=== PATIENT | male | born 1960 | race Caucasian/White ===

== ENCOUNTER 2017-07-14 07:02 | Emergency (ER) | payer BC, OTHER ==
--- OUTSIDE RECORDS SUMMARY | 2017-07-14 07:20 | XMS REPORT ---
:1960 External Reference #:[id number] Author Organization [facility] Address [address] [place] [address] Phone [phone] Care Team Providers Name Role Phone Jimmie Chneey MD Care Team Information Passport Support Manager Unavailable Jimmie Cheney MD Primary Care Physician Unavailable Payers Type Date Identification Numbers Payment Provider Subscriber Commercial Policy Number: [id number] JohnTc Garciaker PayID: [id number] [address] [address] [place] [address] Medigap Part B Effective: Policy Number: BC/BS Of YUDY Giles 2011 [id number] Malik PayID: [id number] [address] [address] [place] [address] Problems Date Description Provider Status Onset: 01/23/2017 Ingrowing nail Jimmie Cheney M.D. Active Onset: 11/28/2015 Actinic keratosis Jimmie Cheney M.D. Active Onset: 11/28/2015 Benign prostatic hypertrophy without Jimmie Cheney M.D. Active outflow obstruction Onset: 02/25/2013 Type 2 diabetes mellitus Jimmie Cheney M.D. Active Onset: 02/25/2013 Acute lymphadenitis Jimmie Cheney M.D. Active Onset: 11/03/2012 Hyperlipidemia Jimmie Cheney M.D. Active Onset: 11/03/2012 Benign localized hyperplasia of Jimmie Cheney M.D. Active prostate Onset: 11/03/2012 Tobacco user Jimmie Cheney M.D. Active Onset: 11/03/2012 Benign essential hypertension Jimmie Cheney M.D. Active Onset: 11/03/2012 Psoriasis Jimmie Cheney M.D. Active Family History Date Family Member(s) Problem(s) Comments Father Non Insulin Dependent Diabetes Father Parkinsons onset at 63 Onset: (age 73 Father Pneumonia , aspiration, Years) parkinsons Mother Gout Mother Psoriasis Mother Arthritis Mother Lung Cancer Mother Ovarian Cancer First Brother Unknown : (age 80 Paternal Grandmother due to Cancer Years) Onset: (age 75 Paternal Uncles Cancer lymphoma Years) Social History Type Date Description Comments Marital Status Patient is Cigarette Use Former Cigarette Smoker Smoking Patient is a former smoker Allergies, Adverse Reactions, Alerts Date Description Reaction Status Severity Comments 11/03/2012 NKDA active Medications Medication Date Status Form Strength Qnty SIG Indications Ordering Provider Glipizide ER 03/13 Active Tablets 2.5mg 90tab 1 by mouth Jimmie F. ER 24HR s every day Zoran Cheney Nizoral 07/11 Active Shampoo 2% 120ml use as Jimmie F. directed Shravan, three times M.D. per week Fluocinolone 07/11 Active Oil 0.01% 118.2 apply 1 Jimmie F. Acetonide 80ml application Shallish, topically to M.D. affected area 3 times per day for eczema Freestyle Lite 11/16 Active Strip 50uni use as Jimmie F. Test ts directed Shravan, 1x/day M.D. dx:250.00- freestyle lite Topicort 03/22 Active Ointment 0.25% 60uni apply three Jimmie F. /2013 ts times a day Shallish, to the M.D. affected area as needed Atorvastatin 03/22 Active Tablets 10mg 30tab Take 1 Jimmie F. Calcium s tablet by Shallish, mouth every M.D. day Freestyle Test 11/08 Active Strips 1Boxe use as Jimmie F. Strips s directed Shravan, 1x/day M.D. dx:250.00- freestyle lite Metformin HCL ER 10/10 Active Tablets 500mg 180ta 3 by mouth Jimmie F. /2013 ER 24HR bs every day Shallish, dose change M.D. Glipizide ER 12/15 Hx Tablets 5mg 90tab 1 by mouth Jimmie F. /2015 ER 24HR s every day Shravan, - M.D. 07/11 Cyclobenzaprine 09/10 Hx Tablets 5mg 15tab 07/01-1 tablet M54.5 Rachel HCL s every night [place], - at bedtime M.D. 11/27 as needed Test Strips Free 11/05 Hx 100un test bid or Vanessa Rosangela. Style Lit its as directed Caroline, - dx:250.00 M.D. 11/08 Prednisone 03/24 Hx Tablets 20mg 10tab 1 by mouth 842.09 Luigi s twice a day Logan, - for 5 days M.D. 09/23 Doxycycline 02/25 Hx Capsules 100mg 30cap take one Jimmie F. Hyclate s capsule by Shravan, - mouth twice M.D. 03/08 a Chantix 01/08 Hx Tablets 1mg 60tab Take One Jimmie F. s Tablet By Shravan, - Mouth Twice M.D. 09/23 A No Active 11/03 Hx Unknown Medications /2012 - 11/03 Chantix Starting 11/03 Hx Tablets 0.5mg X 1tabs refill with Jimmie F. Month 11 & 1 mg po bid Shravan, - 1 mg X 42 M.D. 09/23 Topicort 11/03 Hx Cream 0.25% 1Tub rub in bid Jimmie F. prn Shravan, - M.D. 09/23 Naproxen Sodium 11/29 Hx Tablets 550mg 60tab 1 tab bid 724.2 s prn Alber Teenp-C 11/02 Flexeril 11/29 Hx Tablets 10mg 20tab 1 po tid prn 724.2 Gege s muscle spasm Alber Teenp-C 11/02 Physical Therapy 11/29 Hx treatment 724.2 Gege and Nay - evaluation Grayson-C 12/08 of lower back pain Chantix 01/13 Hx Misc 1unit 1 starter Jimmie F. s pack as Shravan, - directed, Zoran 11/02 then refill /2012 maintenance packs x 3 months Wellbutrin XL 01/13 Hx 150mg 90uni 1 po qd Jimmie F. Alber Barraza M.D. 11/02 Lipitor 01/13 Hx 20mg 45uni 1/2 po qd Jimmie F. ts Alber Cheney M.D. 11/02 Chantix 04/20 Hx Tablets 1mg 60tab 1 po bid Jimmie F. /2008 s Alber Cheney M.D. 01/13 Chantix 02/24 Hx Misc 1unit 1 starter Jimmie F. /2007 s pack as Shravan - Zoran schultz 04/20 then refill maintenance packs x 3 months Zithromax 06/20 Hx Tablets 250mg 1tabs 2 PO qd 461.9 Jimmie F. /2006 Today , Then Shravan, - 1 PO qd M.DPatt 02/10 Times Mucinex 06/20 Hx 40uni 1 PO bid prn Jimmie F. zaki Cheney - Zoran 02/10 Out Of Work Until 06/20 Hx out of work Jimmie F. through mon Shravan, - 06/22/07, Zoran 02/10 on 06/23/07 Zithromax 07/05 Hx Tablets 250mg 6tabs 2 tabs day 1 Gab TPatt /2005 Alber Page M.D. 06/20 1 tab qd /2006 days 2 thru 5 Work Excuse 07/05 Hx unable to Gab TPatt /2005 work 07/05/05. Camilo - Zoran 06/20 Betamethasone 05/27 Hx Cream 0.1% 60uni apply to Jimmie F. Valerate /2004 ts affected Shravan, - area bid prn Coty.DPatt 06/20 Triamcinolone 05/27 Hx Cream 0.1% 1tub apply to Jimmie F. Acetonide /2004 involved Shravan, - skin daily M.DPatt 06/20 Motrin 05/06 Hx Tablets 600mg 40tab 1 po tid prn Jimmie FPatt /2004 s with food Shravan, - Zoran 06/20 Mobic 10/17 Hx Tablets 7.5mg 30tab 1 PO qd Jimmie F. Alber Colon M.D. 05/27 Lipitor 12/12 Hx 20mg 45uni 1/2 po qd Jimmie F. Alber Barraza M.D. 02/10 Singulair 11/28 Hx 30 10mg 90uni 1 po qd Jimmie F. Alber Barraza M.D. 06/20 Nasacort Aq 11/28 Hx 1unit 2 sprays q Jimmie F. s nostril qd Alber Cheney.DPatt 05/27 Wellbutrin XL 11/28 Hx 150mg 90uni 1 po qd Jimmie F. Alber Barraza M.D. 01/13 Wellbutrin SR 03/10 Hx 150mg 60uni 1 po bid Jimmie F. Alber Barraza M.D. 11/28 Clarinex 12/08 Hx 5mg 30uni 1 qd prn Jimmie F. Alber Barraza M.D. 05/27 Zyban 04/07 Hx 150mg 60uni 1 PO qd X 3 Jmimie F. ts Matilda, Then Shravan, - Increase To M.D. 07/06 Nicotrol NS 01/18 Hx 1unit as Dir Jimmie F. Alber Colon.Gonzales 11/28 Cortisone 12/07 Hx 0unit Jimmie F. /1998 Alber Colon M.D. 12/07 Clarinex 12/07 Hx 10mg 30uni 1 qd prn Jimmie F. Alber Barraza.Gonzales 12/08 Loratadine 00/ Hx Tablets 10mg 30tab 1 po qdm prn Jimmie F. / Alber Colon M.D. 11/29 Immunizations CPT Code Status Date Vaccine Lot # [id number] Given 04/10/2015 Td(Adult),Unspecified [id number] Given 03/23/2015 Influenza Vac, Quadriv[place], [place] [id number] Given 10/18/2008 Tdap Tetanus, W Pertussis [id number] Vital Signs Date Vital Result Comment 06/19/2017 BP Systolic 160 mmHg BP Diastolic 80 mmHg Heart Rate 72 /min Body Temperature 98.7 F Respiratory Rate 16 /min Height 72 inches 6'0" Weight 225.00 lb BMI (Body Mass Index) 30.5 kg/m2 01/23/2017 BP Systolic 124 mmHg BP Diastolic 64 mmHg Heart Rate 72 /min Body Temperature 98.8 F Respiratory Rate 16 /min Height 72 inches 6'0" Weight 221.00 lb BMI (Body Mass Index) 30.0 kg/m2 07/11/2016 BP Systolic 127 mmHg BP Diastolic 70 mmHg Heart Rate 74 /min Body Temperature 98.8 F Respiratory Rate 16 /min Height 72 inches 6'0" Weight 229.00 lb BMI (Body Mass Index) 31.1 kg/m2 11/28/2015 BP Systolic 148 mmHg BP Diastolic 72 mmHg Heart Rate 68 /min Body Temperature 97.7 F Height 72 inches 6'0" Weight 231.00 lb BMI (Body Mass Index) 31.3 kg/m2 09/11/2015 BP Systolic 142 mmHg BP Diastolic 62 mmHg Heart Rate 72 /min Body Temperature 97.9 F Respiratory Rate 16 /min Height 72 inches 6'0" Weight 230.00 lb BMI (Body Mass Index) 31.2 kg/m2 08/09/2014 BP Systolic 142 mmHg BP Diastolic 86 mmHg Heart Rate 72 /min Body Temperature 97.6 F Respiratory Rate 16 /min Height 72 inches 6'0" Weight 227.50 lb BMI (Body Mass Index) 30.9 kg/m2 03/22/2014 BP Systolic 146 mmHg BP Diastolic 80 mmHg Heart Rate 60 /min Body Temperature 98.4 F Respiratory Rate 16 /min Height 72 inches 6'0" Weight 228.12 lb BMI (Body Mass Index) 30.9 kg/m2 Right Visual Acuity Distance 20/100 Left Visual Acuity Distance 20/100 09/23/2013 BP Systolic 144 mmHg BP Diastolic 82 mmHg Heart Rate 68 /min Body Temperature 97.6 F Respiratory Rate 16 /min Height 72 inches 6'0" Weight 234.00 lb BMI (Body Mass Index) 31.7 kg/m2 03/24/2013 BP Systolic 124 mmHg BP Diastolic 74 mmHg Heart Rate 56 /min Body Temperature 97.8 F Respiratory Rate 14 /min Height 72 inches 6'0" Weight 224.00 lb BMI (Body Mass Index) 30.4 kg/m2 03/10/2013 BP Systolic 122 mmHg BP Diastolic 78 mmHg Heart Rate 72 /min Body Temperature 98.2 F Respiratory Rate 14 /min Height 72 inches 6'0" Weight 224.00 lb BMI (Body Mass Index) 30.4 kg/m2 02/25/2013 BP Systolic 140 mmHg BP Diastolic 76 mmHg Heart Rate 76 /min Body Temperature 98.2 F Respiratory Rate 16 /min Height 72 inches 6'0" Weight 226.00 lb BMI (Body Mass Index) 30.6 kg/m2 11/03/2012 BP Systolic 114 mmHg BP Diastolic 80 mmHg Heart Rate 78 /min Body Temperature 98.2 F Height 72 inches 6'0" Weight 228.38 lb BMI (Body Mass Index) 31.0 kg/m2 11/29/2010 BP Systolic 120 mmHg BP Diastolic 80 mmHg Heart Rate 68 /min Body Temperature 98.0 F Height 72 inches 6'0" Weight 229.00 lb BMI (Body Mass Index) 31.1 kg/m2 01/13/2010 BP Systolic 120 mmHg BP Diastolic 64 mmHg Heart Rate 56 /min Body Temperature 98.4 F Height 72 inches 6'0" Weight 231.00 lb BMI (Body Mass Index) 31.3 kg/m2 04/20/2009 BP Systolic 122 mmHg BP Diastolic 72 mmHg Heart Rate 68 /min Weight 233.00 lb 02/13/2009 BP Systolic 124 mmHg BP Diastolic 88 mmHg Heart Rate 66 /min Body Temperature 98.2 F Height 72 inches 6'0" Weight 234.00 lb BMI (Body Mass Index) 31.7 kg/m2 10/18/2008 BP Systolic 140 mmHg BP Diastolic 90 mmHg Body Temperature 98.6 F Respiratory Rate 20 /min Height 72 inches 6'0" Weight 232.00 lb BMI (Body Mass Index) 31.5 kg/m2 02/25/2008 BP Systolic 130 mmHg BP Diastolic 70 mmHg Heart Rate 76 /min Height 73 inches 6'1" Weight 231.00 lb BMI (Body Mass Index) 30.5 kg/m2 02/11/2008 BP Systolic 130 mmHg BP Diastolic 80 mmHg Heart Rate 72 /min Body Temperature 98.3 F Height 73 inches 6'1" Weight 231.00 lb BMI (Body Mass Index) 30.5 kg/m2 06/20/2007 BP Systolic 120 mmHg BP Diastolic 68 mmHg Heart Rate 72 /min Body Temperature 98.6 F Respiratory Rate 18 /min Height 73 inches 6'1" Weight 236.00 lb BMI (Body Mass Index) 31.1 kg/m2 07/05/2005 BP Systolic 134 mmHg BP Diastolic 80 mmHg Heart Rate 66 /min Body Temperature 98.5 F Height 73 inches 6'1" Weight 234.00 lb BMI (Body Mass Index) 30.9 kg/m2 11/29/2003 BP Systolic 126 mmHg BP Diastolic 82 mmHg Heart Rate 78 /min Height 73 inches 6'1" Weight 215.00 lb BMI (Body Mass Index) 28.4 kg/m2 03/10/2003 BP Systolic 140 mmHg BP Diastolic 78 mmHg Heart Rate 76 /min Body Temperature 96.5 F Height 73 inches 6'1" Weight 232.00 lb BMI (Body Mass Index) 30.6 kg/m2 04/07/2001 BP Systolic 128 mmHg BP Diastolic 76 mmHg Height 73 inches 6'1" Weight 226.00 lb BMI (Body Mass Index) 29.8 kg/m2 12/07/1998 BP Systolic 112 mmHg LG Cuff BP Diastolic 80 mmHg LG Cuff Height 73 inches 6'1" Weight 224.50 lb Results Test Date Test Result H/L Range Note Comprehensive Metabolic Prof 01/23/2017 Sodium 141 mEq/L 134-149 Potassium 4.0 mEq/L 3.6-5.5 Chloride 99 mEq/L 94-112 Carbon Dioxide 27 mEq/L 21-32 Glucose 200 mg/dL High 70-105 BUN 19 mg/dL 6-26 Creatinine 0.9 mg/dL 0.6-1.4 BUN/Creat Ratio 21.1 CALC 8.0-36.0 Calcium 8.9 mg/dL 8.6-10.2 Total Protein 6.7 g/dL 6.4-8.3 Albumin 4.6 g/dL 3.8-5.5 Globulin 2.1 g/dL 2.0-4.8 A/G Ratio 2.2 CALC 0.6-2.3 Alk. Phosphatase 48 U/L 22-95 Alt (SGPT) 31 U/L 7-35 Ast (Sgot) 21 U/L 5-34 Total Bilirubin 0.6 mg/dL 0.2-1.3 GFR Non- >60 ml/min/1.73m^ >=60 GFR >60 ml/min/1.73m^ >=60 Lipid Profile 01/23/2017 Cholesterol 173 mg/dL 120-200 Triglycerides 155 mg/dL 30-200 HDL Cholesterol 53 mg/dL 30-70 LDL (Calculated) 89 CALC 0-129 VLDL Cholesterol 31 mg/dL 0-50 HDL Risk Factor 3.3 CALC 0.0-4.4 Complete Blood Count 01/23/2017 WBC 5.4 x10^3/UL 3.6-9.6 RBC 5.41 x10^6/UL 3.90-5.70 HGB 16.2 g/dL 12.1-17.2 HCT 47 % 36-50 MCV 86.0 fL 82.2-97.4 MCH 30.0 pg 27.6-33.3 MCHC 34.7 g/dL 33.0-35.5 RDW 12.7 % 11.6-13.7 PLT 196 x10^3/UL 150-400 MPV 7.1 fL Low 7.4-10.4 Gran # 3.6 x10^3/UL 1.5-7.2 Lymph# 1.5 x10^3/UL 0.7-4.9 [place]# 0.3 x10^3/UL 0.1-0.9 Gran % 65.0 % 42.2-75.2 Lymph % 28.7 % 20.5-51.1 [place]% 6.3 % 1.7-9.3 Laboratory test finding 01/23/2017 PSA 2.1 ng/mL 0.0-4.0 TSH 1.20 mIU/L 0.50-6.00 CK 183 U/L High 38-174 Laboratory test finding 01/23/2017 Hemoglobin A1c (Fma) 8.1 % High 4.1- 5.7 Microalb, Random (Fma/CMC/CTX) 18.9 mg/L 0.5-37 Ua - Non Micro ([facility]ma) 01/23/2017 Appearance clear Color yellow Glucose, Urine (Fma/CMC/CTX) 500mg/dl High known diabetic Bilirubin neg Ketones neg SP Grav 1.020 Blood neg PH 5.5 Protein neg Urobil 0.2 Nitrite neg Leukocytes (Fma/CMC/Centrex) neg Comprehensive Metabolic Prof 07/11/2016 Sodium 141 mEq/L 134-149 Potassium 4.6 mEq/L 3.6-5.5 Chloride 102 mEq/L 94-112 Carbon Dioxide 26 mEq/L 21-32 Glucose 150 mg/dL High 70-105 1 BUN 18 mg/dL 6-26 Creatinine 0.9 mg/dL 0.6-1.4 BUN/Creat Ratio 20.0 CALC 8.0-36.0 Calcium 9.9 mg/dL 8.6-10.2 Total Protein 7.0 g/dL 6.4-8.3 Albumin 4.9 g/dL 3.8-5.5 Globulin 2.1 g/dL 2.0-4.8 A/G Ratio 2.3 CALC 0.6-2.3 Alk. Phosphatase 49 U/L 22-95 Alt (SGPT) 42 U/L High 7-35 2 Ast (Sgot) 27 U/L 5-34 Total Bilirubin 0.8 mg/dL 0.2-1.3 GFR Non- >60 ml/min/1.73m^ >=60 GFR >60 ml/min/1.73m^ >=60 Lipid Profile 07/11/2016 Cholesterol 163 mg/dL 120-200 Triglycerides 72 mg/dL 30-200 HDL Cholesterol 59 mg/dL 30-70 LDL (Calculated) 90 CALC 0-129 VLDL Cholesterol 14 mg/dL 0-50 HDL Risk Factor 2.8 CALC 0.0-4.4 Complete Blood Count 07/11/2016 WBC 5.0 x10^3/UL 3.6-9.6 RBC 5.57 x10^6/UL 3.90-5.70 HGB 16.3 g/dL 12.1-17.2 HCT 48 % 36-50 MCV 86.0 fL 82.2-97.4 MCH 29.3 pg 27.6-33.3 MCHC 33.9 g/dL 33.0-35.5 RDW 13.3 % 11.6-13.7 PLT 173 x10^3/UL 150-400 MPV 6.4 fL Low 7.4-10.4 Gran # 3.1 x10^3/UL 1.5-7.2 Lymph# 1.6 x10^3/UL 0.7-4.9 [place]# 0.3 x10^3/UL 0.1-0.9 Gran % 61.2 % 42.2-75.2 Lymph % 32.7 % 20.5-51.1 [place]% 6.1 % 1.7-9.3 Laboratory test finding 07/11/2016 PSA 2.4 ng/mL 0.0-4.0 TSH 1.17 mIU/L 0.50-6.00 CK 177 U/L High 38-174 Laboratory test finding 07/11/2016 Hemoglobin A1c (Fma) 7.3 % High 4.1- 5.7 Microalb, Random (Fma/CMC/CTX) 21.7 mg/L 0.5-37 Ua - Non Micro (Fma) 07/11/2016 Appearance clear Color yellow Glucose, Urine (Fma/CMC/CTX) neg Bilirubin neg Ketones neg SP Grav >1.030 Blood neg PH 5.5 Protein neg Urobil 0.2 Nitrite neg Leukocytes (Fma/CMC/Centrex) neg Rapid Influenza A & B 05/22/2016 Influenza A Molecular NEGATIVE Negative 3 Molecular Influenza B Molecular NEGATIVE Negative Laboratory test finding 05/22/2016 Rapid Strep Molecular Negative Negative 4 Comprehensive Metabolic Prof 11/28/2015 Sodium 139 mEq/L 134-149 Potassium 4.0 mEq/L 3.6-5.5 Chloride 100 mEq/L 94-112 Carbon Dioxide 28 mEq/L 21-32 Glucose 220 mg/dL High 70-105 5 BUN 16 mg/dL 6-26 Creatinine 0.8 mg/dL 0.6-1.4 BUN/Creat Ratio 20.0 CALC 8.0-36.0 Calcium 10.2 mg/dL 8.6-10.2 Total Protein 7.4 g/dL 6.4-8.3 Albumin 4.9 g/dL 3.8-5.5 Globulin 2.5 g/dL 2.0-4.8 A/G Ratio 2.0 CALC 0.6-2.3 Alk. Phosphatase 48 U/L 22-95 Alt (SGPT) 54 U/L High 7-35 6 Ast (Sgot) 31 U/L 5-34 Total Bilirubin 0.6 mg/dL 0.2-1.3 GFR Non- >60 ml/min/1.73m^ >=60 GFR >60 ml/min/1.73m^ >=60 Lipid Profile 11/28/2015 Cholesterol 181 mg/dL 120-200 Triglycerides 128 mg/dL 30-200 HDL Cholesterol 57 mg/dL 30-70 LDL (Calculated) 98 CALC 0-129 VLDL Cholesterol 26 mg/dL 0-50 HDL Risk Factor 3.2 CALC 0.0-4.4 Complete Blood Count 11/28/2015 WBC 6.0 x10^3/UL 3.6-9.6 RBC 5.79 x10^6/UL High 3.90-5.70 HGB 16.9 g/dL 12.1-17.2 HCT 50 % 36-50 MCV 86.0 fL 82.2-97.4 MCH 29.2 pg 27.6-33.3 MCHC 34.0 g/dL 33.0-35.5 RDW 12.3 % 11.6-13.7 PLT 193 x10^3/UL 150-400 MPV 7.2 fL Low 7.4-10.4 Gran # 4.0 x10^3/UL 1.5-7.2 Lymph# 1.7 x10^3/UL 0.7-4.9 [place]# 0.3 x10^3/UL 0.1-0.9 Gran % 64.5 % 42.2-75.2 Lymph % 29.8 % 20.5-51.1 [place]% 5.7 % 1.7-9.3 Laboratory test finding 11/28/2015 PSA 2.0 ng/mL 0.0-4.0 Laboratory test finding 11/28/2015 Hemoglobin A1c (Fma) 8.6 % High 4.1- 5.7 Microalb, Random (Fma/CMC/CTX) 13.2 mg/L 0.5-37 Ua - Non Micro (Fma) 11/28/2015 Appearance yellow Color clear Glucose, Urine (Fma/CMC/CTX) >=1000mg/dl Bilirubin neg Ketones neg SP Grav 1.020 Blood neg PH 6.0 Protein neg Urobil 0.2 Nitrite neg Leukocytes (Fma/CMC/Centrex) neg Comp Metabolic-[facility] 08/20/2014 Sodium 138 mmol/L 133-145 Potassium 4.1 mmol/L 3.5-5.0 Chloride 106 mmol/L 101-111 Co2 Carbon Dioxide 26 mmol/L 22-32 Anion Gap 6 mmol/L 2-11 Glucose 157 mg/dL High 70-100 Blood Urea Nitrogen 18 mg/dL 6-24 Creatinine 1.05 mg/dL 0.67-1.17 BUN/Creatinine Ratio 17.1 8-20 Calcium 9.7 mg/dL 8.6-10.3 Total Protein 6.5 g/dL 6.4-8.9 Albumin 4.6 g/dL 3.2-5.2 Globulin 1.9 g/dL Low 2-4 Albumin/Globulin Ratio 2.4 1-3 Total Bilirubin 0.70 mg/dL 0.2-1.0 Alkaline Phosphatase 39 U/L 34-104 Alt 37 U/L 7-52 Ast 28 U/L 13-39 Egfr Non- 73.6 >60 Egfr 94.7 >60 7 Lipid Panel-[facility] 08/20/2014 Triglycerides 60 mg/dL 8 Cholesterol 157 mg/dL 9 HDL Cholesterol 48.0 mg/dL 10 LDL Cholesterol 97 mg/dL 11 Laboratory test 08/20/2014 Hemoglobin A1c 8.2 % High Less than 6.0 12 finding CBC Electronic-[facility] 08/20/2014 White Blood Count 5.8 10^3/uL 4.8-10.8 [facility] Red Blood Count 5.44 10^6/uL High 4.0-5.4 Hemoglobin 16.0 g/dL 14.0-18.0 Hematocrit 47 % 42-52 Mean Corpuscular Volume 86 fL 80-94 Mean Corpuscular Hemoglobin 30 pg 27-31 Mean Corpuscular HGB Conc 34 g/dL 31-36 Red Cell Distribution Width 13 % 10.5-15 Platelet Count 167 10^3/uL 150-450 Mean Platelet Volume 8 um3 7.4-10.4 Abs Neutrophils 3.1 10^3/uL 1.5-7.7 Abs Lymphocytes 2.0 10^3/uL 1.0-4.8 Abs Monocytes 0.6 10^3/uL 0-0.8 Abs Eosinophils 0.2 10^3/uL 0-0.6 Abs Basophils 0 10^3/uL 0-0.2 Abs Nucleated RBC 0.02 10^3/uL Granulocyte % 53.5 % 38-83 Lymphocyte % 33.7 % 25-47 Monocyte % 9.5 % High 1-9 Eosinophil % 2.7 % 0-6 Basophil % 0.6 % 0-2 Nucleated Red Blood Cells % 0.3 Laboratory test finding 08/20/2014 TSH (Thyroid Stimulating 1.82 IU/mL 0.34-5.60 Horm) Creatine Kinase 309 U/L High 10-223 PSA Screening 2.058 ng/mL 0-4.000 13 Rubeola Measles Igg AB 08/20/2014 Rubeola (Measles) IgG Antibody Positive 14 [facility] IgG Antibody Index >8.0 15 Ict Hemoccult (a) 03/30/2014 Ict Hemoccult (1) 03/24/14(A) NEG Ict Hemoccult-(2) 03/24/14(B) NEG Ict-Hemoccult (3) 03/25/14 NEG Laboratory test finding 03/22/2014 Hemoglobin A1c ([place] 7.0 % High 4.1-5.7 Microalb, Random ([place] 17.3 mg /L mg/L 0.5-37 Ua - Non Micro ([facility]) 03/22/2014 Appearance clear Color yellow Glucose, Urine (a/CMC/CTX) neg Bilirubin neg Ketones neg SP Grav 1.025 Blood neg PH 6.0 Protein neg Urobil 0.2 Nitrite neg Leukocytes ([facility] [place] neg CBC Electronic ([facility]) 03/22/2014 WBC 6.4 3.6-9.6 RBC 5.25 3.90-5.70 Hemoglobin (a/CMC/CTX) 15.6 g/dL 12.1 - 17.2 Hematocrit (a/CMC/CTX) 44.9 % 36.1 - 50.3 Platelets 151 10^3/ul 150-400 Lymph% 28.7 % 17.0-48.0 Mixed% 3.9 Neutrophils % 67.4 Mean Corpuscular Vol 85 82.2-97.4 Mean Corpuscular Hemoglobin 29.8 27.6-33.3 Mean Corpuscular Hemo Concen 34.9 32.0-36.0 RDW 12.3 11.6-13.7 Mean Platelet Volume 6.5 5.5-11.0 Comprehensive Metabolic Prof 03/22/2014 Sodium 144 mEq/L 134-149 Potassium 3.9 mEq/L 3.6-5.5 Chloride 107 mEq/L 94-112 Carbon Dioxide 23 mEq/L 21-32 Glucose 146 mg/dL High 70-105 BUN 18 mg/dL 6-26 Creatinine 0.9 mg/dL 0.6-1.4 BUN/Creat Ratio 20.0 CALC 8.0-36.0 Calcium 9.8 mg/dL 8.6-10.2 Total Protein 7.2 g/dL 6.3-8.1 Albumin 4.6 g/dL 3.8-5.5 Globulin 2.6 g/dL 2.0-4.8 A/G Ratio 1.8 CALC 0.6-2.3 Alk. Phosphatase 46 U/L 22-95 Alt (SGPT) 45 U/L High 7-35 Ast (Sgot) 32 U/L 5-34 Total Bilirubin 0.3 mg/dL 0.2-1.3 Lipid Profile 03/22/2014 Cholesterol 239 mg/dL High 120-200 Triglycerides 107 mg/dL 30-200 HDL Cholesterol 62 mg/dL 30-70 LDL (Calculated) 156 CALC High 0-129 VLDL Cholesterol 21 mg/dL 0-50 HDL Risk Factor 3.9 CALC 0.0-4.4 Laboratory test finding 03/22/2014 TSH 1.25 mIU/L 0.50-6.00 PSA 3.0 ng/mL 0.0-4.0 Basic Metabolic Profile 09/23/2013 Sodium 136 mEq/L 134-149 Potassium 3.6 mEq/L 3.6-5.5 Chloride 96 mEq/L 94-112 Carbon Dioxide 25 mEq/L 21-32 Glucose 235 mg/dL High 70-105 16 BUN 20 mg/dL 6-26 Creatinine 1.0 mg/dL 0.6-1.4 BUN/Creat Ratio 20.0 CALC 8.0-36.0 Calcium 10.2 mg/dL 8.6-10.2 Lipid Profile 09/23/2013 Cholesterol 251 mg/dL High 120-200 Triglycerides 151 mg/dL 30-200 HDL Cholesterol 52 mg/dL 30-70 LDL (Calculated) 169 CALC High 0-129 VLDL Cholesterol 30 mg/dL 0-50 HDL Risk Factor 4.8 CALC High 0.0-4.4 Laboratory test finding 09/23/2013 PSA 1.7 ng/mL 0.0-4.0 Complete Blood Count 09/23/2013 WBC 6.1 x10^3/UL 3.6-9.6 RBC 5.64 x10^6/UL 3.90-5.70 HGB 16.1 g/dL 12.1-17.2 HCT 49 % 36-50 MCV 87.0 fL 82.2-97.4 MCH 28.6 pg 27.6-33.3 MCHC 32.9 g/dL Low 33.0-35.5 RDW 11.2 % Low 11.6-13.7 PLT 169 x10^3/UL 150-400 MPV 6.7 fL Low 7.4-10.4 Gran # 4.2 x10^3/UL 1.5-7.2 Lymph# 1.6 x10^3/UL 0.7-4.9 [place]# 0.3 x10^3/UL 0.1-0.9 Gran % 66.4 % 42.2-75.2 Lymph % 27.8 % 20.5-51.1 [place]% 5.8 % 1.7-9.3 Laboratory test 09/23/2013 Hemoglobin A1c 10.5 % High 4.1-5.7 finding (Fma/CMC,CX) Surgical Pathology 01/05/2013 S RUN DATE: 01/07/ <SEE NOTE> Ict Hemoccult (Fma) 12/21/2012 Ict Hemoccult (1) neg Ict Hemoccult-(2) neg Ict-Hemoccult (3) neg Comprehensive Metabolic Prof 11/10/2012 Albumin 4.7 g/dL 3.8-5.5 Alk. Phos. 59 U/L 22-95 Alt (SGPT) 42 U/L High 10-40 18 Ast (Sgot) 26 U/L 5-34 BUN 18 mg/dL 6-26 Calcium 9.9 mg/dL 8.6-10.2 Chloride 99 mEq/L 94-112 Creatinine 1.0 mg/dL 0.6-1.4 Carbon Dioxide 26 mEq/L 21-32 Glucose 192 mg/dL High 70-105 19 Sodium 138 mEq/L 134-149 Total Bilirubin 0.7 mg/dL 0.2-1.3 Total Protein 6.9 g/dL 6.3-8.1 Potassium 4.1 mEq/L 3.6-5.5 Globulin 2.2 g/dL 2.0-4.8 A/G Ratio 2.1 Calc 0.6-2.3 BUN/Creat Ratio 17.7 Calc 8.0-36.0 Laboratory test finding 11/10/2012 Free T4 0.99 ng/dL 0.75-1.54 TSH 1.47 mIU/L 0.50-6.00 PSA 2.00 ng/mL 0.00-4.00 CBC Electronic ([facility]) 11/10/2012 WBC 5.6 3.6-9.6 RBC 5.71 High 3.90-5.70 Hemoglobin (Fma/CMC/CTX) 16.3 g/dL 12.1 - 17.2 Hematocrit (Fma/CMC/CTX) 49.9 % 36.1 - 50.3 Platelets 168 10^3/ul 150-400 Lymph% 27.6 20.5-51.1 Mixed% 4.3 Neutrophils % 68.1 Mean Corpuscular Vol 87 82.2-97.4 Mean Corpuscular Hemoglobin 28.6 27.6-33.3 Mean Corpuscular Hemo Concen 32.7 32.0-36.0 RDW 11.1 Low 11.6-13.7 Mean Platelet Volume 6.3 Low 6.5-11.0 Ua - Micro (a) 11/03/2012 Appearance CLEAR Color YELLOW Glucose, Urine (Fma/CMC/CTX) - Bilirubin - Ketones - SP Grav >=1.030 Blood - PH 5.5 Protein - Urobil 0.2 Nitrite - Leukocytes (Fma/CMC/[facility]) - Hyaline - /Lpf Granular - /Lpf WBC (Fma,[facility]) 0-1 RBC - Mucus (Fma/CBC/[facility]) - /Lpf Epith - /Lpf Bacteria rare /Hpf Amorphous (Fma/CMC/[facility]) - /Lpf Crystals, Fluid (Fma/CMC/CTX) - Z#Comments - Laboratory test finding 04/06/2012 Hepatitis C Antibody Nonreactive Nonreactive Laboratory test finding 02/22/2012 Hepatitis B Surface Nonreactive Nonreactive 20 Ag Hepatitis B Surface AB 02/22/2012 Hepatitis B Surface Reactive Nonreactive 20 AB Hbsab Index 3.59 20, 21 Laboratory test 02/22/2012 Hepatitis C Nonreactive Nonreactive 20 finding Antibody Vad 02/22/2012 Vad Final Nonreactive Nonreactive 20, 22 Laboratory test 02/22/2012 Alt (SGPT) 43 U/L 17-63 20 finding Laboratory test 10/18/2008 PSA 1.80 ng/mL 0.00-4.00 23 finding Lipid Profile 10/18/2008 Cholesterol 232 mg/dL High 120-200 23 HDL 45 mg/dL 30-70 23 Triglycerides 122 mg/dL 30-200 23 HDL Risk Factor 5.2 CALC 4.2-7.0 23 LDL (Calculated) 163 CALC High 0-129 23 VLDL (Calculated) 24 mg/dL 0-50 23 Comprehensive Metabolic Prof 10/18/2008 Albumin 4.4 g/dL 3.8-5.5 23 Alk. Phos. 42 U/L 22-95 23 Alt (SGPT) 47 U/L High 10-40 23, 24 Ast (Sgot) 28 U/L 5-34 23 BUN 14 mg/dL 6-26 23 Calcium 9.4 mg/dL 8.6-10.2 23 Chloride 100 mEq/L 94-112 23 Creatinine 1.1 mg/dL 0.6-1.4 23 Carbon Dioxide 26 mEq/L 21-32 23 Glucose 119 mg/dL High 70-105 23 Sodium 139 mEq/L 134-149 23 Total Bilirubin 0.6 mg/dL 0.2-1.3 23 Total Protein 6.6 g/dL 6.3-8.1 23 Potassium 3.7 mEq/L 3.6-5.5 23 Globulin 2.3 g/dL 2.0-4.8 23 A/G Ratio 1.9 Calc 0.6-2.2 23 BUN/Creat Ratio 13.2 Calc 8.0-36.0 23 Laboratory test finding 10/18/2008 TSH 2.16 mIU/L 0.50-6.00 23 Complete Blood Count 10/18/2008 WBC 6.3 x10^3/uL 3.6-9.6 23 Gran# 4.4 x10^3/uL 1.5-7.2 23 Gran% 69.7 % 42.2-75.2 23 HCT 46 % 36-50 23 HGB 15.9 g/dL 12.1-17.2 23 Lymph# 1.6 x10^3/uL 0.7-4.9 23 Lymph% 26.0 % 20.5-51.1 23 MCH 29.0 pg 27.6-33.3 23 MCV 84.3 fL 82.2-97.4 23 MCHC 34.4 g/dL 33.0-35.5 23 Mo# 0.3 x10^3/uL 0.1-0.9 23 Mo% 4.3 % 1.7-9.3 23 MPV 6.9 fL Low 7.4-10.4 23 PLT 174 x10^3/uL 150-400 23 RBC 5.48 x10^6/uL 3.90-5.70 23 RDW 12.9 % 11.6-13.7 23 Laboratory test finding 10/18/2008 Hep B Surface Antigen NEGATIVE Negative 25 Hep C Abs 10/18/2008 Hep C Antibody NEGATIVE Negative 25 Ua - Non Micro (a New) 05/27/2005 Appearance CLEAR Color LT LORENA Glucose 250 MG/DL Bilirubin NEG Ketones TRACE SP Grav >=1.030 Blood NEG PH 5.0 Protein NEG Urobil 0.2 Nitrite NEG Leukocytes NEG Laboratory test finding 04/15/2005 [facility]AST See Image Report Lipid Profile ([facility]) 11/30/2003 Cholesterol 237 mg/dL High 120-200 Triglyceride 59 mg/dL 30-200 HDL-Chol 41 30-85 LDL, Calculated [place] 185 CALC High 0-129 VLDL 12 0-50 HDL Risk Factor ([facility]) 5.8 CALC 4.2-7.0 CBC Electronic [place] 03/14/2003 WBC 6.7 CUMM 4.8-10.8 RBC 5.59 CUMM 4.6-6.2 Hemoglobin (a[place] 16.4 g/dL 14-18 Hematocrit (a/[facility] 48 % 42-52 Mean Corpuscular Vol 87 UM3 80-94 Mean Corpuscular Hemaglobin 29 pg 27-31 Mean Corpuscular Hemo Concen 34 g/dL 32-36 RDW 13 10.5-15 Platelets 293 CUMM 150-450 Mean Platelet Volume 6.3 Low 7.4-10.4 Granulocytes 66.3 % 38-83 Lymphocytes 22.4 % 20-45 Monocytes 8.2 % 1-9 Eosinophil 2.6 0-6 Basophil% 0.5 0-2 Abs Lymphs 1.5 1.0-4.8 Abs Mononuclear 0.5 0-0.8 Abs Grans 4.5 1.5-7.7 Abs Eosinophils 0.2 0-0.6 Abs Basophils 0.0 0-0.2 Lipid Profile [place] 03/14/2003 Triglyceride 162 mg/dL 40-200 Cholesterol (a/[facility]) 232 mg/dL High <200 HDL-Chol 46 40-60 Chol./HDL Ratio ([facility]/CTX) 5.04 AVG High 1-4.97 LDL, Calculated ([facility] 154 High <100 Basic Metabolic [place] 03/14/2003 Sodium 140 mmol/L 135-145 Potassium 4.1 mmol/L 3.5-5.0 Chloride 101 mmol/L 101-111 Co2 32.0 mmol/L 22-32 Anion Gap 7.0 mmol/L 2-11 Glucose, Serum (a/[facility]/CTX) 104 mg/dL 70-105 BUN (a/[facility]rex) 12 mg/dL 6-24 Creatinine (a/[facility]/CTX) 1.2 mg/dL 0.5-1.4 BUN/Creatinin Ratio 10.0 8-20 Calcium (a/[facility]) 10.1 mg/dL 8.7-10.2 Laboratory test 01/02/2003 Comments HEP BS ANT & Titer; Hep A Ant finding AB Laboratory test 04/08/2001 C React Protein <0.3 mg/dL <0.5 finding Ua - Micro [place] [place] 12/30/1999 Color YELLOW Appearance CLEAR SP Grav 1.025 1.010-1.030 Esterase NEGATIVE Negative Nitrite NEGATIVE Negative Urobil NEGATIVE Negative Protein NEGATIVE Negative PH 5.0 5-9 Blood 3+ High Negative Ketones NEGATIVE Negative Bilirubin, Micro NEGATIVE Negative Glucose NEGATIVE mg/dL 70-105 WBC 0-2 CUMM RBC 20-25 CUMM CBC Electronic ([facility] 12/30/1999 WBC 7.6 CUMM 4.8-10.8 RBC 5.77 CUMM 4.6-6.2 Hemoglobin 17.1 g/dL 14-18 Hematocrit 51 % 42-52 Mean Corpuscular Vol 89 um3 80-94 Mean Corpuscular Hemaglobin 30 pg 27-31 Mean Corpuscular Hemo Concen 33 g/dL 32-36 RDW 12 % 10.5-15 Platelets 201 CUMM 150-450 Mean Platelet Volume 7.2 um3 Low 7.4-10.4 Granulocytes 61.5 % 38-83 Lymphocytes 25.5 % 20-45 Monocytes 9.4 % High 1-9 Eosinophil 3.2 % 0-6 Basophil% 0.4 % 0-2 Abs Lymphs 1.9 1.0-4.8 Abs Mononuclear 0.7 0-0.8 Abs Grans 4.8 1.5-7.7 Abs Eosinophils 0.2 0-0.6 Abs Basophils 0 0-0.2 Basic Metabolic [place] 12/30/1999 Sodium 140 mmol/L 135-145 Potassium 3.4 mmol/L Low 3.5-5.0 Chloride 102 mmol/L 95-108 Co2 22.2 mmol/L 21-33 Glucose 142 mg/dL High 70-105 BUN 16 mg/dL 6-22 Creatinine 0.8 mg/dL 0.5-1.4 BUN/Creatinin Ratio 20.0 8-20 Calcium 9.9 mg/dL 8.7-10.2 Laboratory test finding 02/02/1999 Thyroxine, Total (T4) 5.69 g/dL 3.0- 11.0 CBC With Diff ([facility]) 12/30/1998 WBC 6.2 /Hpf 3.6 - 9.6 Lymphocytes 30.9 % 20.5 - 51.1 Monocytes 7.2 % 1.7 - 9.3 Granulocytes 61.9 % 42.2 - 75.2 Lymphocytes 1.9 10^3/uL 0.7 - 4.9 Monocytes 0.4 10^3/uL 0.1 - 0.9 Granulocytes 3.8 10^3/uL 1.5 - 7.2 RBC 5.30 /Hpf 3.90 - 5.70 Hemoglobin 15.4 g/dL 12.1 - 17.2 Hematocrit 46.8 % 36.1 - 50.3 Mean Corpuscular Vol 88.4 fl 82.2 - 97.4 Mean Corpuscular Hemaglobin 29.1 pg 27.6 - 33.3 Mean Corpuscular Hemo Concen 32.9 g/dL Low 33.0 - 34.8 RDW 12.9 % 11.6 - 13.7 Platelets 201 10^3/ul Low 202 - 386 Mean Platelet Volume 6.6 fl Low 7.4 - 10.4 Laboratory test finding 12/13/1998 H. Pylori Igg NONE DETECTED None Detected 1 consistent w/ previous results 2 consistent w/ previous results 3 Rail Engineer: [id number] JOSE BRIDGES 4 Rail Engineer: [id number] PJ RICHARDSON 5 NON-FASTING 6 consistent w/ previous results 7 Because ethnic data is not always readily available, this report includes an eGFR for both -Americans and non- Americans. The National Kidney Disease Education Program (NKDEP) does not endorse the use of the MDRD equation for patients that are not between the ages of 18 and 70, are , have extremes of body size, muscle mass, or nutritional status, or are non- or non-. According to the National Kidney Foundation, irrespective of diagnosis, the stage of the disease is based on the level of kidney function: Stage Description GFR(mL/min/1.73 m(2)) 1 Kidney damage with normal or decreased GFR 90 2 Kidney damage with mild decrease in GFR 60-89 3 Moderate decrease in GFR 30-59 4 Severe decrease in GFR 15-29 5 Kidney failure <15 (or dialysis) 8 Desirable <150 Borderline high 150-199 High 200-499 Very High >500 9 Desirable <200 Borderline high 200-239 High >239 10 Low <40 Desirable: 40-60 High: >60 11 Desirable <100 Near Optimal 100-129 Borderline high 130-159 High 160-189 Very High >189 12 Therapeutic target for the treatment of diabetes Mellitus patients is <7% HBA1C, and in selective patients <6.0%.Please refer to [place] [employer] Association Diabetic care guidelines for further information. 13 Serum levels of PSA measured using the Declan Zeta Interactive DXI Hybritech immunoassay should not be interpreted as absolute evidence of the presence or absence of disease. The PSA value should be used in conjunction with other pertinent clinical diagnostic procedures. The values obtained with different assay methods or kits cannot be used interchangeably. 14 Results suggest response to immunization or prior exposure to the virus. REFERENCE VALUE Vaccinated: Positive (>=1.1 AI) Unvaccinated: Negative (<=0.8 AI) 15 Test Performed by: [facility] [place] [address] Supervisor: Cruzito Weber II, M.D., Ph.D. 16 RESULTS VERIFIED BY REPEAT ANALYSIS 17 RUN DATE: 01/07/13 [facility] LIVE PAGE 1 RUN TIME: [address] [place] [id number] Specimen Inquiry Name: GAIL MARIN : [address]: Jesse Castellano MD Acct: [id number] Unit: [id number] AGE: 52 Location: [facility] Re01/05/13 SEX: M Status: REG REF SPEC: [id number] LOYDA: 01/05/13- SUBM DR: Jesse Castellano MD REQ: [id number] RECD: 01/05/13-1635 STATUS: SARAH HERNANDEZ DR: Jimmie Cheney MD _ ORDERED: LEVEL IV FINAL DIAGNOSIS Colon, at 30 cm., biopsy: Hyperplastic polyp. CLINICAL HISTORY Routine screening colonoscopy POST-OPERATIVE DIAGNOSIS Screening colonoscopy to terminal ileum - biopsy taken GROSS DESCRIPTION The specimen is received in formalin labeled Gail Marin, Biopsy Polyp at 30 cm., and consists of a 0.3 x 0.2 x 0.2 cm. heredia-white portion of tissue. Submitted entirely, one cassette. Signed (signature on file) Omer Barrera MD 1319 END OF REPORT * ML=Testing performed at Main Lab DEPARTMENT OF PATHOLOGY, [address] [place] [address] Omer Barrera M.D. Director [facility] Permit #[id number] 18 RESULT BRUCE'D 19 RESULT BRUCE'D 20 COMMENTS: N 21 The World Health Organization (WHO) Hepatitis B Immunoglobulin 1st International Reference Preparation (1976): The accepted criteria for immunity to HBV is anti-HBs activity greater than or equal to 10 mIU/mL. An Index Value of 1.00 is equivalent to 10 mIU/mL. Samples with an Index Value of 1.00 or greater are considered reactive (protective) in accordance with the CDC guidelines. 22 It is recognized that currently available assays for the detection of antibodies to HIV-1 and/or HIV-2 may not detect all infected individuals. HIV antibodies may be undetectable in some stages of the infection and in some clinical conditions. The performance of this assay has not been established for populations of infants or children. Assayed by Chemiluminescence Microparticle Immunoassay on the Yamile Advia Centaur CP. Values obtained with different methods or kits cannot be used interchangeably.The diagnostic specificity of the ADVIA Centaur 1/O/2 Enhanced assay in the low risk population was 99.90% (6052/6058) with a 95% confidence interval of 99.78 to 99.96%. 23 FASTING 24 RESULT BRUCE' 25 1 SST TUBE Procedures Date CPT Code Description Status Comment 01/23/2017 23906 Electrocardiogram Complete Completed 06/30/2014 Diabetic Retinal Eye Exam Completed Dr Pepper 03/22/2014 97025 Vision Test- screening test of Completed visual acuity, quantitative, bila 03/22/2014 45648 Electrocardiogram Complete Completed 01/05/2013 Colonoscopy Completed 11/03/2012 70390 Electrocardiogram Complete Completed 10/28/[address] Castellano - 1 hyperplastic polyp - follow up colonoscopy in 10yrs 05/27/2005 59779 Electrocardiogram Complete Completed 09/19/2001 74942 Repair Superfic Wound < Completed 2.6CM Scalp/Neck/Axil/Genit/Trunk/Ex tr Encounters Type Date Location Provider CPT E/M Dx Office Visit 01/23/2017 9:00a Main Office Jimmie Cheney M.D. 89362 E11.9 N40.0 E78.4 L40.9 L60.0 Z00.00 Office Visit 07/11/2016 9:00a Main Office Jimmie Cheney M.D. 05119 E11.9 N40.0 E78.4 Office Visit 11/28/2015 9:00a Main Office Jimmie Cheney M.D. 42378 E11.9 N40.0 L57.0 F17.211 Office Visit 09/11/2015 1:20p [facility] Rachel Biswas M.D. 48218 M54.5 Office Visit 08/09/2014 2:20p Main Office Jimmie Cheney M.D. 72236 250.00 600.20 272.4 V70.0 Office Visit 03/22/2014 1:00p Main Office Jimmie Cheney M.D. 86324 696.1 250.00 600.20 272.4 V70.0 V72.0 Office Visit 09/23/2013 10:00a Main Office Jimmie Cheney M.D. 62059 696.1 401.1 790.6 600.20 Office Visit 03/24/2013 8:20a Main Office Luigi Logan M.D. 50986 842.09 Office Visit 03/10/2013 1:30p Main Office Luigi Logan M.D. 88935 842.09 Office Visit 02/25/2013 3:20p Main Office Jimmie Cheney M.D. 21904 696.1 305.1 683 250.00 Office Visit 11/03/2012 2:30p Main Office Jimmie Cheney M.D. 02832 696.1 401.1 305.1 600.20 272.4 V70.0 V76.41 Office Visit 11/29/2010 2:00p Main Office Clarita Draper 61877 724.2 Office Visit 01/13/2010 10:45a Main Office Jimmie Cheney M.D. 73615 782.9 Office Visit 04/20/2009 8:20a Main Office Jimmie Cheney M.D. 88926 272.4 305.1 Office Visit 02/13/2009 9:00a Main Office Gab Page M.D. 66136 724.2 720.2 Office Visit 10/18/2008 8:00a Main Office Jimmie Cheney M.D. 57424 305.1 600.00 272.4 696.1 401.1 V70.0 V06.5 Office Visit 02/25/2008 3:40p Main Office Jimmie Cheney M.D. 81778 448.1 305.1 Office Visit 02/11/2008 3:40p Main Office Jimmie Cheney M.D. 60959 448.1 Office Visit 06/20/2007 11:30a Main Office Jimmie Cheney M.D. 77518 461.9 465.9 600.00 272.4 V76.41 Office Visit 07/05/2005 2:10p Main Office Gab Page M.D. 40371 465.9 461.9 Office Visit 05/27/2005 8:00a [facility] Jimmie Cheney M.D. 50543 272.4 719.41 696.1 V70.0 Office Visit 04/15/2005 4:15p [facility] Jimmie Cheney M.D. 71646 272.4 477.8 719.41 Office Visit 11/29/2003 1:00p Main Office Jimmie Cheney M.D. 58802 272.4 477.8 300.4 Office Visit 03/10/2003 1:30p Main Office Jimmie Cheney M.D. 75145 786.50 Office Visit 04/07/2001 8:20p Main Office Jimmie Cheney M.D. 74736 Plan of Care 06/19/2017 - Eliza Matamoros, NPR53.83 Other fatigueNew Labs:B12 ([facility]/ [facility])Comp Metabolic-ALL Lab CompaniCMV Igg And IgmCBC Electronic-ALL Lab CompaniLyme Total/Igm/G WB Regardless/LcorpMonospot ([facility]rex)Evelyn & Rheumatoid FactorVitamin D, 25Hydroxy([facility]ma/LCInfluenza A/B RapidNew Xrays:Chest 2 ViewsComments:Monitor your symptoms and temperature. If you are not completely back to normal within 1-2 weeks, come back for a recheck.M79.1 QfnipbvG25.9 Fever, unspecified
[2017-07-14 08:32] VITALS: BP 148/84
--- NOTE | 2017-07-14 18:20 | ED ---
April Garcias Thomas, scribed for Fritz Anderson MD on 07/14/17 at 0747 . Complex/Multi-Sys Presentation - HPI Summary HPI Summary: The patient is a 56 year old male presenting to the ED complaining of sinus congestion that began four days ago. He also complains of chest congestion that worsened last night. He has a cough with green production. He also complains of a sore throat. Patient denies fevers. The patient is a former smoker and quit five years ago. - History Of Current Complaint Chief Complaint: EDUpperRespComplaint Time Seen by Provider: 07/14/17 07:26 Hx Obtained From: Patient Onset/Duration: Lasting Days - 4, Still Present Timing: Constant Severity Currently: Moderate Alleviating Factor(s): None Associated Signs And Symptoms: Positive: Other - sinus congestion, cough, chest congestion, sore throat; NEGATIVE: fevers - Allergies/Home Medications Allergies/Adverse Reactions: Allergies Allergy/AdvReac Type Severity Reaction Status Date / Time No Known Allergies Allergy Verified 07/14/17 07:25 PMH/Surg Hx/FS Hx/Imm Hx Previously Healthy: Yes Endocrine/Hematology History: Reports: Hx Diabetes Opthamlomology History: Denies: Hx Legally Blind EENT History: Denies: Hx Deafness - Surgical History Surgery Procedure, Year, and Place: tonsils 1967 Infectious Disease History: No Infectious Disease History: Reports: Hx Hepatitis - in past, poss heb B Denies: Traveled Outside the [place] in Last 30 Days - Family History Known Family History: Negative: Cardiac Disease - Social History Occupation: Employed Full-time Alcohol Use: Rare Substance Use Type: Reports: None Smoking Status (MU): Former Smoker Type: Cigarettes Review of Systems Negative: Fever Positive: Sore Throat, Other - Sinus congestion Positive: Cough, Other - Chest congestion All Other Systems Reviewed And Are Negative: Yes Physical Exam - Summary Physical Exam Summary: Appearance: The patient is well-nourished in no acute distress and in no acute pain. Skin: The skin is warm and dry and skin color reflects adequate perfusion. HEENT: The head is normocephalic and atraumatic. The pupils are equal and reactive. The conjunctivae are clear and without drainage. Nares are patent and without drainage. Mouth reveals moist mucous membranes and the throat is without exudate. The throat is erythematous. The external ears are intact. The ear canals are patent and without drainage. The tympanic membranes are intact. Neck: the neck is supple with full range of motion. There is anterior cervical lymphadenopathy. There are no carotid bruits. There is no neck vein distension. Respiratory: Chest is non-tender. Lungs are clear to auscultation and breath sounds are symmetrical and equal. Cardiovascular: Heart is regular rate and rhythm. There is no murmur or rub auscultated. There is no peripheral edema and pulses are symmetrical and equal. Abdomen: The abdomen is soft and non-tender. There are normal bowel sounds heard in all four quadrants and there is no organomegaly palpated. Musculoskeletal: There is no back tenderness noted. Extremities are non-tender with full range of motion. There is good capillary refill. There is no peripheral edema or calf tenderness elicited. Neurological: Patient is alert and oriented to person, place and time. The patient has symmetrical motor strength in all four extremities. Cranial nerves are grossly intact. Deep tendon reflexes are symmetrical and equal in all four extremities. Psychiatric: The patient has an appropriate affect and does not exhibit any anxiety or depression. Triage Information Reviewed: Yes Vital Signs On Initial Exam: Initial Vitals Temp Pulse Resp BP Pulse Ox 98.4 F 82 16 158/86 96 07/14/17 07:06 07/14/17 07:06 07/14/17 07:06 07/14/17 07:06 07/14/17 07:06 Vital Signs Reviewed: Yes - Ame Coma Scale Coma Scale Total: 15 Diagnostics - Vital Signs Vital Signs Temp Pulse Resp BP Pulse Ox 07/14/17 07:21 87 19 97 07/14/17 07:20 157/83 07/14/17 07:06 98.4 F 82 16 158/86 96 - Laboratory Lab Results: Lab Results 07/14/17 07/14/17 Range/Units 07:54 08:00 Influenza A (Rapid) Negative (Negative) Influenza B (Rapid) Negative (Negative) Group A Strep Rapid Negative (Negative) Lab Statement: Any lab studies that have been ordered have been reviewed, and results considered in the medical decision making process. Complex Multi-Symp Course/Dx Course Of Treatment: Ed presented several days into a flu-like illness with a worsening cough productive of green sputum. He was negative for influenza and I think this is likely a secondeary bacterial infection following a viral illness. He has a long smoking history although he has now quit and i will treat him with biaxin and cough medicine. - Diagnoses Provider Diagnoses: Bronchitis Discharge - Discharge Plan Condition: Stable Disposition: HOME Prescriptions: Clarithromycin TAB* [Biaxin TAB*] 500 mg PO BID #20 tab Guaifenesin-Codeine [Guaiatussin AC 100-10 mg/5Ml] 5 ml PO Q4HR #120 ml MDD 30 cc Patient Education Materials: Acute Bronchitis (ED) Forms: *Work Release Referrals: Jimmie Cheney MD [Primary Care Provider] - 3 Days Additional Instructions: Follow up with your primary care provider in three days. Return to the emergency department for any new or worsening symptoms. The documentation as recorded by the April maynard Thomas accurately reflects the service I personally performed and the decisions made by me, Fritz Anderson MD.
== END 2017-07-14 08:33 | disposition home or self-care (01) ==
LOC: ED 07:02
DX: J40 Bronchitis, not specified as acute or chronic (principal); J02.9 Acute pharyngitis, unspecified; R09.81 Nasal congestion; E11.9 Type 2 diabetes mellitus without complications; Z90.89 Acquired absence of other organs; Z87.891 Personal history of nicotine dependence
CPT/HCPCS: 87502; 87651; 99283

== ENCOUNTER 2020-02-22 13:59 | Observation (INO) ==
[2020-02-22 14:30] LABS: ABS Eosinophils 0.1 10^3/ul (0-0.6); ABS Lymphocytes 1.4 10^3/ul (1.0-4.8); ABS Monocytes 0.5 10^3/ul (0-0.8); ABS Neutrophils 3.4 10^3/ul (1.5-7.7); Eosinophil % 2.5 %; Hematocrit 47 % (42-52); Hemoglobin 16.3 g/dL (14.0-18.0); Lymphocyte % 26.5 %; Mean Corpuscular HGB Conc 35 g/dL (31-36); Mean Corpuscular Hemoglobin 30 pg (27-31); Mean Corpuscular Volume 87 fL (80-94); Mean Platelet Volume 7.6 fL (7.4-10.4); Nucleated Red Blood Cells % 0.1; Platelet Count 174 10^3/uL (150-450); Red Blood Count 5.39 10^6 /uL (4.18-5.48); Red Cell Distribution Width 13 % (10-15); White Blood Count 5.5 10^3/uL (3.5-10.8)
[2020-02-22] MEDS ORDERED: NS 0.9% 1000 ml BAG 1,000 ML IV ONE (14:32)
[2020-02-22 14:48] LABS: INR 0.91 (0.82-1.09)
[2020-02-22 15:01] LABS: ALT 28 U/L (7-52); Albumin/Globulin Ratio 2.4 (1-3); Alkaline Phosphatase 32 U/L (34-104); BUN/Creatinine Ratio 17.4 (8-20); Blood Urea Nitrogen 19 mg/dL (6-24); CO2 Carbon Dioxide 26 mmol/L (22-32); Calcium 10.4 mg/dL (8.6-10.3); Chloride 103 mmol/L (101-111); EGFR African American 83.8 (>60); EGFR Non-African American 69.2 (>60); Globulin 2.1 g/dL (2-4); Glucose 227 mg/dL (70-100); Sodium 139 mmol/L (135-145); Total Protein 7.1 g/dL (6.4-8.9)
[2020-02-22 15:03] LABS: Troponin I 0.01 ng/mL (<0.03)
[2020-02-22 15:09] LABS: Anion Gap 10 mmol/L (2-11)
[2020-02-22 15:58] LABS: Potassium Redraw 3.2 mmol/L (3.5-5.0)
[2020-02-22 16:10] LABS: TSH Ultra Thyroid Stim Horm 1.13 mcIU/mL (0.34-5.60)
[2020-02-22] MEDS ORDERED: Nitro 2% OINT (Nitroglycerin) 1 INCH/PAK TOPICAL ONE (16:32)
[2020-02-22] MEDS ORDERED: Iodixanol (CONTRAST) 320 MG/ML 100 ML SDV IV ONE (17:28)
[2020-02-22] MEDS ORDERED: Al Hydrox/Mg Hydrox/Simet LIQ 30 ML UDC PO PRN (20:04)
[2020-02-22] MEDS ORDERED: Ondansetron 4 mg VIAL 2 MG/ML 2 ml VIAL IV PRN (20:04)
[2020-02-22] MEDS ORDERED: Potassium Chlor 20 meq TAB.ER PO ONE (20:08)
[2020-02-22 20:30] LABS: Cholesterol 190 mg/dL; HDL Cholesterol 50.3 mg/dL; LDL Cholesterol 86 mg/dL; Triglycerides 270 mg/dL
[2020-02-23] MEDS ORDERED: hydrALAZINE 20 mg/ml 1 ML Vial IV IV SLOW PU PRN (10:09)
[2020-02-23] MEDS ORDERED: hydrALAZINE 20 mg/ml 1 ML Vial IV ONE (10:13)
[2020-02-23] MEDS ORDERED: Morphine 2 MG/ML SYRINGE IV ONE (10:23)
[2020-02-23] MEDS ORDERED: Morphine 2 MG/ML SYRINGE ONE (10:27)
[2020-02-23] MEDS ORDERED: Perflutren Lipid Microsphere 3 ML VIAL ONE (10:33)
[2020-02-23] MEDS ORDERED: Morphine 2 MG/ML SYRINGE IV PRN (12:12)
[2020-02-23] MEDS ORDERED: Dextrose 50% Syringe 50 ml 25 GM/50 ML SYRINGE IV PUSH PRN (12:25)
[2020-02-23] MEDS ORDERED: Enoxaparin 40 MG/0.4 ML SYR SUBCUT SCH (13:00)
[2020-02-23] MEDS ORDERED: Regadenoson 0.4 MG/5 ML SYRINGE ONE (13:23)
[2020-02-23 15:55] VITALS: BP 141/77
== END 2020-02-23 16:30 | disposition home or self-care (01) ==
LOC: MEDTELE 13:59 → ED 13:59 → MEDTELE 21:05
PROVIDERS: ADMIT Pediatrics; ATTEND Internal Medicine